=== PATIENT | female | born 1970 | race Caucasian/White ===

== ENCOUNTER 2016-11-24 20:51 | Emergency (ER) | payer OTHER, MEDICAID ==
[~2016-11-24 20:51] MED LIST: ECO81 PO; GLU500 PO; HUMI SC; HYD25 PO; L40 PO; LANTI SQ; LOP50 PO; METOPROLOL TART25 M1 PO; NEU300 PO; NOR5 PO; NOVI SQ; PAX20 PO; TOP50 PO; ULT50 PO; ZES20 PO
[2016-11-24 23:59] VITALS: BP 166/97
== END 2016-11-24 23:59 | disposition home or self-care (01) ==
LOC: ED 20:51
DX: S50.02XA Contusion of left elbow, initial encounter (principal); M25.561 Pain in right knee; I11.0 Hypertensive heart disease with heart failure; I50.9 Heart failure, unspecified; E09.40 Drug or chemical induced diabetes mellitus with neurological complications with diabetic neuropathy, unspecified; Z88.0 Allergy status to penicillin; Z88.8 Allergy status to other drugs, medicaments and biological substances; Z90.49 Acquired absence of other specified parts of digestive tract; W18.30XA Fall on same level, unspecified, initial encounter; Y93.89 Activity, other specified; Y92.89 Other specified places as the place of occurrence of the external cause; Y99.8 Other external cause status